=== PATIENT | female | born 1970 ===

== ENCOUNTER 2018-12-01 11:33 | Emergency (ER) | payer OTHER ==
[~2018-12-01] VITALS: Ht 162.6 cm; Wt 127.0 kg
[2018-12-01] MEDS ORDERED: WARFARIN SODIU7.5 MG (11:44)
== END 2018-12-01 15:17 | disposition home or self-care (01) ==
LOC: ER 11:33
DX: K52.89 Other specified noninfective gastroenteritis and colitis (principal)

== ENCOUNTER 2021-01-12 09:41 | Outpatient (CLI) | payer OTHER ==
[~2021-01-12 09:41] MED LIST: WARFARIN SODIU7.5 MG
== END 2021-01-12 09:42 | disposition home or self-care (01) ==
LOC: NUCLEAR 09:41
PROVIDERS: ATTEND Internal Medicine Cardiovascular Disease
DX: R07.89 Other chest pain (principal); I49.8 Other specified cardiac arrhythmias